=== PATIENT | female | born 1955 | race African-American/Black ===

== ENCOUNTER 2017-08-11 19:52 | Emergency (ER) | payer OTHER ==
[~2017-08-11] VITALS: Ht 175.3 cm; Wt 95.0 kg
[2017-08-11 19:57] VITALS: Ht 175.3 cm; Wt 95.0 kg
[2017-08-11] MEDS ORDERED: FURO-109 PO (20:29)
[2017-08-11] MEDS ORDERED: FUROSEMIDE 20 MG TAB PO ONE (20:30)
[2017-08-11] MEDS ORDERED: NICARDipine HCL 30 MG CAPSULE PO ONE (20:30)
[2017-08-11 21:10] VITALS: BP 120/78; PULSE 80; RESP 18; TEMP 97.4
--- NOTE | 2017-08-11 22:04 | ERD ---
ER Documentation Chief Complaint Date/Time DATE: 08/11/17 TIME: 22:02 Chief Complaint swelling both legs for a few days HPI Patient is a 62-year-old female with hypertension who presents with lower extremity swelling. She said that she has lower bilateral extremity swelling over the past few days. She wants her blood pressure checked as well. She is speaking in full sentences. She said that she was seen in another emergency department and was given a prescription for benazepril but she has not filled it yet because she did not want to have to take medications but feels that now that if her blood pressure is elevated she will start to take it because she wants to make sure she is being treated correctly. She has bilateral ankle pain from the swelling but no chest pain. Upon review of old medical records this is the patient's first visit to the emergency department. She says that her primary doctor is Dr. Madrid. ROS All systems reviewed and are negative except as per history of present illness. Medications Home Meds Active Scripts Furosemide* (Lasix*) 40 Mg Tablet, 40 MG PO DAILY, #20 TAB Prov:PARIS OLIVAS MD 08/11/17 Allergies Allergies: Coded Allergies: No Known Drug Allergies (Verified Allergy, Unknown, 08/11/17) PMhx/Soc Medical and Surgical Hx: pt denies Surgical Hx History of Surgery: No Anesthesia Reaction: No Hx Neurological Disorder: No Hx Respiratory Disorders: No Hx Cardiac Disorders: No Hx Psychiatric Problems: No Hx Miscellaneous Medical Probl: No Hx Alcohol Use: No Hx Substance Use: No Hx Tobacco Use: Yes (Vaping) Smoking Status: Current every day smoker FmHx Family History: diabetes Physical Exam Vitals Vital Signs Date Time Temp Pulse Resp B/P Pulse Ox O2 Delivery O2 Flow Rate FiO2 08/11/17 21:10 97.4 80 18 120/78 98 Room Air 08/11/17 20:35 97.4 77 18 130/80 98 Room Air 08/11/17 19:57 97.2 78 20 185/100 96 Physical Exam Const: No acute distress Head: Atraumatic Eyes: Normal Conjunctiva ENT: Normal External Ears, Nose and Mouth. Neck: Full range of motion..~ No meningismus. Resp: Clear to auscultation bilaterally Cardio: Regular rate and rhythm, no murmurs Abd: Soft, non tender, non distended. Normal bowel sounds Skin: No petechiae or rashes Back: No midline or flank tenderness Ext: 1+ pitting edema bilaterally Neur: Awake and alert Psych: Normal Mood and Affect Results 24 hrs Current Medications Medications (Trade) Dose Ordered Sig/Isaac Route PRN Reason Start Time Stop Time Status Last Admin Dose Admin Nicardipine HCl (Cardene) 30 mg ONCE ONCE PO 08/11/17 20:30 08/11/17 20:31 DC 08/11/17 20:30 Furosemide (Lasix) 40 mg ONCE ONCE PO 08/11/17 20:30 08/11/17 20:31 DC 08/11/17 20:30 Procedures/MDM Patient is a 62-year-old female with hypertension who presents with bilateral lower extreme knee swelling. She has bilateral edema and I doubt DVT at this time. I doubt acute congestive heart failure. She is on her feet a lot. I recommended compressive stockings and I will treat her with daily Lasix. The first dose was given in the emergency department. Her blood pressure was initially 185/100 in the emergency department she was given Cardene and her blood pressure improved prior to discharge. She said that she will take the benazepril that was prescribed to her by another doctor. She can return for any worsening symptoms. I do not believe she requires further workup or admission the hospital at this time. Departure Diagnosis: Primary Impression: Hypertension Hypertension type: essential hypertension Qualified Code: I10 - Essential hypertension Additional Impression: Swelling Condition: Fair Patient Instructions: High Blood Pressure (Hypertension), Peripheral Edema, Bilateral Referrals: PIEETR MADRID Additional Instructions: Call your primary care doctor TOMORROW for an appointment during the next 1-2 days.See the doctor sooner or return here if your condition worsens before your appointment time. PARIS OLIVAS MD Aug 11, 2017 22:04
== END 2017-08-11 21:15 | disposition home or self-care (01) ==
LOC: E/R 19:52
DX: I10 Essential (primary) hypertension (principal); F17.210 Nicotine dependence, cigarettes, uncomplicated
CPT/HCPCS: Z7502; Z7610; 99283

== ENCOUNTER 2017-10-27 05:17 | Emergency (ER) | END 2017-10-27 07:31 | disposition home or self-care (01) ==